=== PATIENT | female | born 1935 | race African-American/Black ===

== ENCOUNTER 2024-10-18 15:21 | Inpatient (IN) | payer OTHER ==
[2024-10-18 16:33] LABS: Absolute Basophils 0.1 K/uL (0-0.5); Absolute Lymphocytes (CBC) 2.3 K/uL (0.7-4.9); Absolute Monocytes 0.4 K/uL (0.1-1.3); Absolute Neutrophil 6.1 K/uL (1.8-8.0); Basophils % 1.1 % (0-1.3); Eosinophils % 0.1 % (0-4.4); Hematocrit 18.2 % (36.0-45.0); Lymphocytes % 26.2 % (15.3-44.8); MCHC 30.1 g/dL (32.0-36.0); MPV 7.1 fL (7.6-11.3); Neutrophils % 68.6 % (41.7-73.7); Nucleated Red Blood Cells % 0.2 % (0-0); Platelets 709 thou/uL (152-406); RBC Red Blood Cell Count 3.03 M/uL (3.86-4.86); Red Cell Distribution Width 20.3 % (12.1-15.2)
[2024-10-18 16:38] LABS: Hemoglobin 5.5 g/dL (12.0-15.0)
[2024-10-18 16:51] LABS: AST/SGOT 16 U/L (15-37); Albumin 3.2 g/dL (3.4-5.0); Albumin/Globulin Ratio 0.7 (1.1-1.8); Alkaline Phosphatase 93 U/L (45-117); Anion Gap 11.5 mEq/L (5.0-15.0); BUN Blood Urea Nitrogen 15 mg/dL (7-18); Bicarbonate 22 mEq/L (21-32); Bilirubin Total 0.4 mg/dL (0.2-1.0); Globulin 4.8 g/dL (2.3-3.5); Glomerular Filtration Rate 54 ml/min (=/>90); Glucose Level 200 mg/dL (74-106); Lipase 19 U/L (13-75); Potassium 4.5 mEq/L (3.5-5.1); Sodium Level 137 mEq/L (136-145)
[2024-10-18 16:52] LABS: ALT/SGPT < 14 U/L (13-56)
[2024-10-18 16:54] LABS: Troponin High Sensitivity 112.4 pg/mL (<58.9)
[2024-10-18] MEDS ORDERED: PANTOPRAZOLE 40 MG INJ ONE (17:09)
[2024-10-18] MEDS ORDERED: NA CHLORIDE 0.9% 250 ML ONE (17:10)
--- NOTE | 2024-10-18 17:42 | RAD REPORT ---
EXAMINATION: Abdomen Pelvis W Contrast CLINICAL INDICATION: Female, 88 years old.anemia TECHNIQUE: CT abdomen and pelvis was performed, after the administration of IV contrast, as per [facility] protocol. Axial, sagittal and coronal reconstructions were obtained. One or more of the following dose reduction techniques were used: Automated exposure control, adjustment of the mA and/o r kV according to patient size, and/or iterative reconstruction. Unless otherwise specified, incidental findings do not require dedicated imaging follow-up. [id number]. COMPARISON: No prior exam. FINDINGS: LOWER CHEST: No acute process identified.Mild cardiomegaly. Aortic valve calcifications. UPPER GI: No significant abnormality. LIVER: No significant focal abnormality. GALLBLADDER/BILE DUCTS: No biliary ductal dilatation.? PANCREAS: Atrophy but no acute findings. SPLEEN: Unremarkable. ADRENALS: No adrenal masses. KIDNEYS AND URETERS: No hydronephrosis.No suspicious renal mass.No renal calculi. ABDOMINAL AORTA AND OTHER VESSELS: Mild atherosclerotic changes. PERITONEUM: No abnormal free fluid. No free air. LYMPH NODES: No bulky retroperitoneal lymphadenopathy. This includes a left para-aortic lymph node me asuring 2.2 cm. Bilateral pelvic sidewall lymphadenopathy. ABDOMINAL WALL: Body wall edema SMALL BOWEL/COLON: Irregular rectal wall thickening at the lower third of the rectum. Enlarged perire ctal lymph nodes.Normal appendix. Low formed stool burden. URINARY BLADDER: Underdistended but grossly unremarkable. REPRODUCTIVE ORGANS: Uterus surgically absent. No adnexal abnormality. MUSCULOSKELETAL: Multilevel degenerative changes in the spine. No acute fracture. ADDITIONAL FINDINGS: None. 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 The retroperitoneal lymph nodes should be amenable to CT-guided biopsy if clinically indicated. Alternatively, could consider colonos copy for sampling. No bowel obstruction.
[2024-10-18 17:45] LABS: Differential Total Cells Count 100
[2024-10-18 17:46] LABS: Lymphocytes 21 % (15-42); Monocytes 1 % (0-10); Platelet Estimate INCR; Segmented Neutrophils 78 % (40-80)
[2024-10-18 17:48] LABS: Blood Morphology Comment NOT SEEN (NOT SEEN)
--- NOTE | 2024-10-18 18:16 | EDPHYS ---
Physician Documentation [facility] Name: Nisreen Mayer Age: 88 yrs Sex: Female : 1935 Arrival Date: 10/18/2024 Time: 15:21 Bed 17 Private MD: ED Physician Koffi Burkett HPI: 10/18 15:48 This 88 yrs old Black Female presents to ER via Wheelchair with complaints of Abnormal overnight babysitter Results. 15:48 Patient sent in by PCP for anemia. Hemoglobin of 10 6 months ago, most recently down to rn 5. Reports dark stool for unknown period of time. No hematemesis. Does not take blood thinners. No abdominal pain. No syncope or shortness of breath. Patient reports feels fine otherwise. No early satiety or weight loss.. Onset: The symptoms/episode began/occurred 6 month(s) ago. Severity of symptoms: At their worst the symptoms were moderate in the emergency department the symptoms are unchanged. The patient has not experienced similar symptoms in the past. Historical: - Allergies: 15:29 No Known Allergies; ld1 - PMHx: 15:29 Hypertensive disorder; Diabetes mellitus; Hypercholesterolemia; ld1 - PSHx: 15:29 Total abdominal hysterectomy; ld1 - Immunization history:: Adult Immunizations up to date. - Infectious Disease History:: Denies. - Social history:: Smoking status: Patient denies any tobacco usage or history of. - Family history:: not pertinent. - Hospitalizations: : No recent hospitalization is reported. ROS: 15:48 Constitutional: Negative for fever, chills, and weight loss, Cardiovascular: Negative rn for chest pain, palpitations, and edema, Respiratory: Negative for shortness of breath, cough, wheezing, and pleuritic chest pain, Abdomen/GI: Negative for abdominal pain, nausea, vomiting, diarrhea, and constipation, positive for dark stool Back: Negative for injury and pain, MS/Extremity: Negative for injury and deformity, Skin: Negative for injury, rash, and discoloration, Neuro: Negative for headache, weakness, numbness, tingling, and seizure, Exam: 15:48 Constitutional: This is a well developed, well nourished patient who is awake, alert, rn and in no acute distress. Eyes: Pale conjunctiva Cardiovascular: Tachycardic, regular. No pulse deficits. Respiratory: No increased work of breathing, no retractions or nasal flaring. Abdomen/GI: Soft, non-tender MS/ Extremity: Pulses equal, no cyanosis Neuro: Awake and alert, GCS 15 Vital Signs: 15:27 BP 143 / 86; Pulse 113; Resp 18; Temp 97.5(TE); Pulse Ox 98% on R/A; Weight 71.67 kg; ld1 Height 5 ft. 0 in. ; Pain 0/10; 18:51 BP 141 / 79; Pulse 69; Resp 16; Pulse Ox 100% ; bp 19:30 BP 163 / 81; Pulse 99; Resp 18; Pulse Ox 100% ; cp4 20:30 BP 153 / 77; Pulse 97; Resp 18; Pulse Ox 100% ; cp4 21:30 BP 155 / 78; Pulse 94; Resp 18; Pulse Ox 100% ; cp4 22:30 BP 155 / 78; Pulse 94; Resp 18; Pulse Ox 100% ; cp4 15:27 Body Mass Index 30.86 (71.67 kg, 152.4 cm) ld1 15:27 Pain Scale: Adult ld1 MDM: 15:37 Medical Screening Exam initiated rn 18:12 Differential Diagnosis Colon cancer, GI bleed, gastric ulcers, duodenal ulcer, anemia. rn Data reviewed: vital signs, nurses notes, lab test result(s), radiologic studies, CT scan, and as a result, I will admit patient. Consideration of Admission/Observation Patient was admitted/placed on observation. Escalation of care including admission/observation considered. Counseling: I had a detailed discussion with the patient and/or guardian regarding the historical points, exam findings, and any diagnostic results supporting the discharge/admit diagnosis, lab results, radiology results, the need for further work-up and treatment in the hospital. ED course: Patient with hemoglobin 5.5. CT shows possible rectal/colon cancer with lymphadenopathy. Slow bleed from February to now. Will give transfusion, 2 units of blood and admit to hospitalist service for GI consultation. Clinically patient reports dark stool consistent with upper GI bleed but CT shows possible rectal mass. Patient denies hematochezia.. 10/18 15:43 Order name: CBC with Diff; Complete Time: 18:05 rn 10/18 15:43 Order name: CMP; Complete Time: 17:31 rn 10/18 15:43 Order name: Lipase; Complete Time: 17:31 rn 10/18 15:43 Order name: Type And Screen rn 10/18 15:43 Order name: Troponin High Sensitivity; Complete Time: 17:31 rn 10/18 16:41 Order name: Manual Differential; Complete Time: 18:05 EDMS 10/18 17:37 Order name: Bb Add On bd 10/18 19:23 Order name: Packed RBCs (Additional Unit) EDMS 10/18 19:30 Order name: ABO/RH no charge; Complete Time: 16:53 EDMS 10/18 20:34 Order name: CBC with Automated Diff EDMS 10/18 20:34 Order name: Troponin High Sensitivity EDMS 10/18 20:34 Order name: Comprehensive Metabolic Panel EDMS 10/18 20:34 Order name: Comprehensive Metabolic Panel; Complete Time: 16:53 EDMS 10/18 20:34 Order name: Protime (+INR) EDMS 10/18 20:34 Order name: Protime (+INR); Complete Time: 16:53 EDMS 10/18 20:34 Order name: PTT, Activated Partial Thromb EDMS 10/18 20:34 Order name: PTT, Activated Partial Thromb; Complete Time: 16:53 EDMS 10/19 05:56 Order name: Troponin High Sensitivity; Complete Time: 16:53 EDMS 10/19 06:02 Order name: CBC with Automated Diff; Complete Time: 16:53 EDMS 10/19 08:25 Order name: Manual Differential; Complete Time: 16:53 EDMS 10/19 09:40 Order name: Glucose, Ancillary Testing; Complete Time: 16:53 EDMS 10/19 12:37 Order name: Glucose, Ancillary Testing; Complete Time: 16:53 EDMS 10/18 15:43 Order name: CT Abd/Pelvis - IV Contrast Only; Complete Time: 18:05 rn 10/18 20:34 Order name: Echo with Doppler EDWA 10/18 20:33 Order name: CONS Physician Consult EDWA 10/18 20:34 Order name: CONS Physician Consult EDWA 10/18 15:43 Order name: IV Saline Lock; Complete Time: 16:32 rn 10/18 15:43 Order name: Labs collected and sent; Complete Time: 16:32 rn 10/18 15:43 Order name: EKG - Nurse/Tech; Complete Time: 17:50 rn 10/18 16:38 Order name: Labs - recollect needed: recollect type and screen, re band pt; Complete bd Time: 17:06 10/18 17:20 Order name: Labs - recollect needed: re collect type and screen reband pt again; bd Complete Time: 17:49 Administered Medications: 17:50 Drug: Pantoprazole IVP 40 mg IVP once Route: IVP; Site: right antecubital; bp 17:50 Drug: Pantoprazole IV 8 mg/hr IV at 25 ml/hr continuous; (Standard dilution is 80 mg in bp 250 mL NS) Route: IV; Rate: 25 ml/hr; Site: right antecubital; 10/19 07:00 Follow up: Response: No adverse reaction; IV Status: Infusion continued upon admission jl7 Disposition Summary: 10/18/24 18:16 Hospitalization Ordered Notes: Hospitalization Status: Inpatient Admission rn Provider: Luis Meza rn Condition: Stable rn Problem: an ongoing problem rn Symptoms: are unchanged rn Bed/Room Type: Standard rn Location: Telemetry/MedSurg (Inpatient)(10/19/24 13:51) bd Room Assignment: 218(10/19/24 14:43) bd Diagnosis - Anemia, unspecified rn - GI Bleed/ Gastrointestinal hemorrhage, unspecified rn Forms: - Medication Reconciliation Form rn - SBAR form rn - Leadership Thank You Letter engraver ornamental design time excluding procedures: 10/18 18:12 Critical care time: Bedside Care: 30 minutes, Consultation: 5 minutes, Family rn Intervention: 5 minutes. Total time: 40 minutes Signatures: Dispatcher [employer] EDWA Tereza Brice Koffi Burkett MD MD rn Attema, Lee, MID LEVEL PROJECT MANAGER-C MID LEVEL PROJECT MANAGER-Cla1 Alfonso Logan, RN RN bp Brandy Penny RN RN ld1 Ashley Law RN RN vc1 Terry Terrell RN jl7 Corrections: (The following items were deleted from the chart) 15:44 15:44 Troponin High Sensitivity+C.LAB.BRZ ordered. EDWA EDMS 21:01 18:16 Telemetry/MedSurg (Inpatient) rn vc1 21: 18:16 rn vc1 10/19 13:51 10/18 21:01 [facility] ER HOLD vc1 bd 10/19 13:51 10/18 21:01 ERHOLD- vc1 bd 30 14:43 13:51 430 bd bd
--- NOTE | 2024-10-18 18:16 | ER ---
Nurse's Notes [facility] Name: Nisreen Mayer Age: 88 yrs Sex: Female : 1935 Arrival Date: 10/18/2024 Time: 15:21 Bed 17 Private MD: Diagnosis: Anemia, unspecified;GI Bleed/ Gastrointestinal hemorrhage, unspecified Presentation: 10/18 15:27 Chief complaint: Patient states: Sent by Dr. Singh for abnormal lab results - Low HGB. ld1 From February to August pt dropped from 10 to a 5. Coronavirus screen: At this time, the client does not indicate any symptoms associated with coronavirus-19. Ebola Screen: No symptoms or risks identified at this time. Initial Sepsis Screen: Does the patient meet any 2 criteria? No. Patient's initial sepsis screen is negative. Does the patient have a suspected source of infection? No. Patient's initial sepsis screen is negative. Risk Assessment: Do you want to hurt yourself or someone else? Patient reports no desire to harm self or others. Onset of symptoms was October 18, 2024. 15:27 Method Of Arrival: Wheelchair ld1 15:27 Acuity: QUINN 2 ld1 Triage Assessment: 15:29 General: Appears in no apparent distress. comfortable, Behavior is calm, cooperative, ld1 appropriate for age. Pain: Denies pain. EENT: No signs and/or symptoms were reported regarding the EENT system. Neuro: Level of Consciousness is awake, alert, obeys commands, Oriented to person, place, time, situation. Cardiovascular: Capillary refill < 3 seconds Patient's skin is warm and dry. Cardiovascular: Rhythm is sinus tachycardia. Respiratory: Airway is patent Respiratory effort is even, unlabored. GI: Abdomen is flat, non-distended. : No signs and/or symptoms were reported regarding the genitourinary system. Derm: No signs and/or symptoms reported regarding the dermatologic system. Musculoskeletal: No signs and/or symptoms reported regarding the musculoskeletal system. Historical: - Allergies: 15: No Known Allergies; ld1 - PMHx: 15: Hypertensive disorder; Diabetes mellitus; Hypercholesterolemia; ld1 - PSHx: 15: Total abdominal hysterectomy; ld1 - Immunization history:: Adult Immunizations up to date. - Infectious Disease History:: Denies. - Social history:: Smoking status: Patient denies any tobacco usage or history of. - Family history:: not pertinent. - Hospitalizations: : No recent hospitalization is reported. Screenin:30 [facility] ED Fall Risk Assessment (Adult) History of falling in the last 3 months, bp including since admission No falls in past 3 months (0 pts) Confusion or Disorientation No (0 pts) Intoxicated or Sedated No (0 pts) Impaired Gait No (0 pts) Mobility Assist Device Used No (0 pt) Altered Elimination No (0 pt) Score/Fall Risk Level 0 - 2 = Low Risk Oriented to surroundings. Abuse screen: Denies threats or abuse. Denies injuries from another. Nutritional screening: No deficits noted. Tuberculosis screening: No symptoms or risk factors identified. Assessment: 15:30 General: Appears in no apparent distress. comfortable, Behavior is calm, cooperative, bp appropriate for age. 17:30 Reassessment: Patient appears in no apparent distress at this time. Patient is alert, bp oriented x 3, equal unlabored respirations, skin warm/dry/pink. Vital Signs: 15:27 BP 143 / 86; Pulse 113; Resp 18; Temp 97.5(TE); Pulse Ox 98% on R/A; Weight 71.67 kg; ld1 Height 5 ft. 0 in. ; Pain 0/10; 18:51 BP 141 / 79; Pulse 69; Resp 16; Pulse Ox 100% ; bp 19:30 BP 163 / 81; Pulse 99; Resp 18; Pulse Ox 100% ; cp4 20:30 BP 153 / 77; Pulse 97; Resp 18; Pulse Ox 100% ; cp4 21:30 BP 155 / 78; Pulse 94; Resp 18; Pulse Ox 100% ; cp4 22:30 BP 155 / 78; Pulse 94; Resp 18; Pulse Ox 100% ; cp4 15:27 Body Mass Index 30.86 (71.67 kg, 152.4 cm) ld1 15:27 Pain Scale: Adult ld1 ED Course: 15:22 Patient arrived in ED. im 15:29 Triage completed. ld1 15:29 Arm band placed on right wrist. ld1 15:30 Patient has correct armband on for positive identification. bp 15:30 No provider procedures requiring assistance completed. Patient admitted, IV remains in bp place. 15:37 Koffi Burkett MD is Attending Physician. rn 16:32 Troponin High Sensitivity Sent. bc6 16:32 Type And Screen Sent. bc6 16:32 CBC with Diff Sent. bc6 16:32 CMP Sent. bc6 16:32 Lipase Sent. bc6 16:32 Initial lab(s) drawn, by me, sent to lab. Inserted saline lock: 22 gauge in left bc6 antecubital area, using aseptic technique. Blood collected. Flushed with 10 mL NS. 17:01 Alfonso Logan, RN is Primary Nurse. bp 17:21 CT Abd/Pelvis - IV Contrast Only In Process Unspecified. EDMS 18:15 Luis Meza MD is Hospitalizing Provider. rn 23:12 Provided Education on: Blood Transfusion, admission. cp4 10/19 07:13 Primary Nurse role handed off by Alfonso Logan, OPAL guan Administered Medications: 10/18 17:50 Drug: Pantoprazole IVP 40 mg IVP once Route: IVP; Site: right antecubital; bp 17:50 Drug: Pantoprazole IV 8 mg/hr IV at 25 ml/hr continuous; (Standard dilution is 80 mg in bp 250 mL NS) Route: IV; Rate: 25 ml/hr; Site: right antecubital; 10/19 07:00 Follow up: Response: No adverse reaction; IV Status: Infusion continued upon admission jl7 Medication: 10/18 23:13 VIS not applicable for this client. cp4 Outcome: 18:16 Decision to Hospitalize by Provider. rn 23:12 Admitted to ER Hold. Please see [facility] for further documentation. cp4 23:12 Condition: stable 23:12 Instructed on the need for admit, 10/19 15:47 Patient left the ED. jl7 Signatures: Dispatcher [employer] EDMS Tereza Brice Roman, MD MD rn Leal, Jahala, RN RN jl7 Alfonso Logan, RN Brandy Rodas RN RN nan1 Bella Ng [facility] Christina Morley Christina cp4
[2024-10-18] MEDS ORDERED: ACETAMINOPHEN 500 MG TAB PO PRN (20:20)
--- NOTE | 2024-10-18 20:34 | P.HP ---
Certification for Inpatient Patient admitted to: Inpatient With expected LOS: >2 Midnights Patient will require the following post-hospital care: None Practitioner: I am a practitioner with admitting privileges, knowledge of patient current condition, hospital course, and medical plan of care. Services: Services provided to patient in accordance with Admission requirements found in Title 42 Section 412.3 of the Code of Federal Regulations Patient History Date of Service: 10/18/24 Reason for admission: Lower GI bleeding; melanotic stool History of Present Illness: Patient is an 88-year-old female who comes into the hospital with severe anemia. She was told by her PCP her hemoglobin has been running low since August. Her current hemoglobin is 5.5. Patient states she has been having melanotic stools for the last month and a half. She denies any weight loss. In the ER she had imaging studies which revealed her rectal mass as well as lymphadenopathy. Will consult GI for endoscopy for further evaluation and biopsy of the rectal lesion. Patient states she has never had a colonoscopy or an EGD. Patient denies any family history of colorectal cancer. Patient will be admitted for inpatient hospitalization. Patient also has an elevated troponin. She is also followed up with her staffing associate and has had a stress test in the last year which did not reveal any significant abnormality. Patient possibly with a type II myocardial infarction because of the degree of anemia. Will consult cardiology for further evaluation. Patient will be admitted for inpatient hospitalization. Will continue with the PPI and IV antibiotics and will await further recommendations per GI and cardiology. Allergies No Known Allergies Allergy (Verified 12/31/15 10:17) Home Medications: Amlodipine Besylate [Norvasc] 10 mg PO DAILY 04/18/15 Aspirin [Aspirin EC 81 MG] 81 mg PO DAILY 04/18/15 Pioglitazone HCl/Metformin HCl [Actoplus Met 15 mg-500 mg Tab] 1 each PO BID 04/18/15 Simvastatin [Zocor*] 10 mg PO BEDTIME 04/18/15 cloNIDine HCL [Catapres*] 0.1 mg PO BID 04/18/15 Cyclosporine [Restasis] 1 each EACH EYE BID 09/18/15 Metoprolol Tartrate [Lopressor] 100 mg PO DAILY 09/18/15 Valsartan/Hydrochlorothiazide [Valsartan-Hctz 320-25 mg Tab] 1 each PO DAILY 12/26/15 Vit C/E/Zn/Coppr/Lutein/Zeaxan [Preservision Areds 2 Softgel] 1 each PO DAILY 12/26/15 - Past Medical/Surgical History -: Hypertension -: Type 2 diabetes -: Hyperlipidemia Past Surgical History: Patient denies surgical history - Family History Father Family History: Reviewed- Non-Contributory - Social History Smoking Status: Never smoker Alcohol use: No CD- Drugs: No Review of Systems 10-point ROS is otherwise unremarkable Physical Examination - Vital Signs Temperature: 98 F Blood Pressure: 150/80 Pulse: 92 Respirations: 18 Pulse Ox (%): 95 - Physical Exam General: Alert, In no apparent distress, Oriented x3 HEENT: Atraumatic, PERRLA, Mucous membr. moist/pink, EOMI, Sclerae nonicteric Neck: Supple, 2+ carotid pulse no bruit, No LAD, Without JVD or thyroid abnormality Respiratory: Clear to auscultation bilaterally, Normal air movement Cardiovascular: Regular rate/rhythm, Normal S1 S2, No murmurs Gastrointestinal: Normal bowel sounds, Soft and benign, Non-distended, No tenderness, No rebound, No guarding Musculoskeletal: No clubbing, No swelling, No tenderness Integumentary: No rashes Neurological: Normal gait, Normal speech, Normal strength at 5/5 x4 extr, Normal tone, Sensation intact, Cranial nerves 3-12 intact, Normal affect Lymphatics: No axilla or inguinal lymphadenopathy - Studies Laboratory Data (last 24 hrs) 10/18/24 10/18/24 16:20 16:20 WBC 8.90 Hgb 5.5 L* Hct 18.2 L Plt Count 709 H Sodium 137 Potassium 4.5 BUN 15 Creatinine 1.02 Glucose 200 H Total Bilirubin 0.4 AST 16 ALT < 14 Alkaline Phosphatase 93 Lipase 19 Assessment & Plan - Problems (Diagnosis) (1) Lower GI bleed Current Visit: Yes Status: Acute (2) Hypertension Current Visit: Yes Status: Acute (3) Type 2 diabetes mellitus Current Visit: Yes Status: Acute (4) Reactive thrombocytosis Current Visit: Yes Status: Acute - Plan Plan: 1. Patient with GI bleed; patient states she has had melanotic stools as well as a hemoglobin of 5.5. Patient CT imaging shows a rectal mass. 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 Patient has not had a colonoscopy. Will continue with PPI and antibiotics and await for GI consultation. Appreciate their assistance in patient's care. 2. Type II myocardial infarction secondary to anemia; continue monitoring H&H. Hold antiplatelet therapy because of the GI bleed but continue with statin therapy at this time. Will get cardiology consultation as patient states she has had a stress test in the last year which was unremarkable 3. Metabolic syndrome; strict blood pressure and blood sugar control and resume antihypertensives and oral hypoglycemic agents as tolerated 4. Acute blood loss anemia with reactive thrombocytosis; 2 units of packed red blood cells ordered and will monitor hemoglobin closely. Anemia workup with iron studies and B12 level as well as reticulocyte count pending 5. GI DVT prophylaxis Discharge Plan: Home Plan to discharge in: Greater than 2 days - Advance Directives Does patient have a Living Will: No Does patient have a Durable POA for Healthcare: No - Code Status/Comfort Care Code Status Assessed: Yes Code Status: Full Code Critical Care: No Time Spent Managing PTS Care (In Minutes): 45
[2024-10-18] MEDS: NA CHLORIDE 0.9% 1,000 ML IV SCH (21:00)
[2024-10-18] MEDS ORDERED: NA CHLORIDE 0.9% 200 ML ONE (21:10)
[2024-10-18 23:24] VITALS: BMI 30.8
[2024-10-19] MEDS ORDERED: ONDANSETRON 4 MG/2 ML VIAL ONE (01:38)
[2024-10-19] MEDS: ONDANSETRON 4 MG/2 ML VIAL IV PRN (01:41)
[2024-10-19 05:50] LABS: AST/SGOT 13 U/L (15-37); Albumin 3.4 g/dL (3.4-5.0); Albumin/Globulin Ratio 0.7 (1.1-1.8); Alkaline Phosphatase 102 U/L (45-117); BUN Blood Urea Nitrogen 11 mg/dL (7-18); Bicarbonate 20 mEq/L (21-32); Bilirubin Total 0.8 mg/dL (0.2-1.0); Globulin 5.2 g/dL (2.3-3.5); Glomerular Filtration Rate 84 ml/min (=/>90); Glucose Level 209 mg/dL (74-106); Protein, Total 8.6 g/dL (6.4-8.2); Sodium Level 135 mEq/L (136-145)
[2024-10-19 05:52] LABS: Hematocrit 27.6 % (36.0-45.0); Hemoglobin 8.6 g/dL (12.0-15.0); MCH 21.3 pg (27.0-35.0); MCHC 31.2 g/dL (32.0-36.0); MCV 68.3 fL (80-100); MPV 7.1 fL (7.6-11.3); Platelets 678 thou/uL (152-406); RBC Red Blood Cell Count 4.05 M/uL (3.86-4.86); Red Cell Distribution Width 27.6 % (12.1-15.2)
[2024-10-19 05:52] LABS: ALT/SGPT < 14 U/L (13-56)
[2024-10-19 05:56] LABS: PT Prothrombin Time 11.9 SECONDS (10-13.0); PTT, Activated Partial Thromb 31.4 SECONDS (27.2-37.4); Protime INR 1.05
[2024-10-19 05:56] LABS: Troponin High Sensitivity 136.3 pg/mL (<58.9)
[2024-10-19] MEDS ORDERED: PANTOPRAZOLE INJ 80 MG in NA CHLORIDE 0.9% 250 ML IV SCH (07:00)
[2024-10-19 08:24] LABS: Anisocytosis 3+; Blood Morphology Comment NOTED (NOT SEEN); Differential Total Cells Count 100; Hypochromasia 1+; Lymphocytes 6 % (15-42); Microcytosis 1+; Monocytes 1 % (0-10); Platelet Estimate INCR; Segmented Neutrophils 93 % (40-80); Target Cells FEW
[2024-10-19 08:25] LABS: Teardrop Cell 1+
[2024-10-19] MEDS: PANTOPRAZOLE INJ 80 MG in NA CHLORIDE 0.9% 250 ML IV SCH (09:00)
[2024-10-19] MEDS: METOPROLOL TARTRATE 5 MG/5 ML INJ IV SCH (09:00)
[2024-10-19] MEDS: CEFTRIAXONE 1,000 MG in NA CHLORIDE 0.9% 50 ML IVPB SCH (09:00)
[2024-10-19] MEDS ORDERED: CEFTRIAXONE 1000 MG/VIAL ONE (09:11)
[2024-10-19] MEDS ORDERED: METRONIDAZOLE 500mg IVPB 500 MG/100 ML BAG IV ONE (09:12)
[2024-10-19] MEDS ORDERED: cloNIDine HCL 0.1 MG TAB ONE (09:12)
[2024-10-19] MEDS ORDERED: METOPROLOL TARTRATE 5 MG/5 ML INJ IV ONE ×2 (09:12→14:46)
[2024-10-19] MEDS ORDERED: NA CHLORIDE 0.9% 50 ML ONE (09:12)
[2024-10-19] MEDS ORDERED: GLUCAGON 1 MG/VIAL IM PRN (09:19)
[2024-10-19] MEDS ORDERED: D10W 125 ML IV PRN (09:19)
[2024-10-19] MEDS: METRONIDAZOLE 500mg IVPB 500 MG/100 ML BAG IV SCH (09:30)
[2024-10-19] MEDS: cloNIDine HCL 0.1 MG TAB PO SCH (09:50)
[2024-10-19] MEDS: INSULIN REGULAR (HUMAN) 100 UNIT/ML SQ SCH (11:30)
--- NOTE | 2024-10-19 12:16 | P.CNS ---
Date of Consult: 10/19/24 Chief Complaint: Lower GI bleeding; melanotic stool History of Present Illness: Patient with PMH of HTN, presented with weakness, she was told that her HgB is dropping, she report bleeding per rectum, denies having any cardiac symptoms, no chest pain, no palpitations, no SOB, no GRACE, no syncope. Allergies No Known Allergies Allergy (Verified 12/31/15 10:17) Home medications list reviewed: Yes Home Medications: Amlodipine Besylate [Norvasc] 10 mg PO DAILY 04/18/15 cloNIDine HCL [Catapres*] 0.2 mg PO DAILY 04/18/15 Valsartan/Hydrochlorothiazide [Valsartan-Hctz 320-25 mg Tab] 80 mg PO DAILY 12/26/15 Metformin HCl 850 mg PO DAILY 10/19/24 Metoprolol Succinate 25 mg PO DAILY 10/19/24 - Past Medical/Surgical History -: Hypertension -: Type 2 diabetes -: Hyperlipidemia - Family History Father Family History: Reviewed- Non-Contributory - Social History Alcohol use: No CD- Drugs: No Place of Residence: Home Review of Systems 10-point ROS is otherwise unremarkable Physical Examination Temp Pulse Resp BP Pulse Ox 98 F 97 H 18 168/90 H 95 10/19/24 06:18 10/19/24 09:50 10/19/24 06:18 10/19/24 09:50 10/19/24 06:18 General: Alert, In no apparent distress HEENT: Atraumatic, PERRLA, Mucous membr. moist/pink, EOMI, Sclerae nonicteric Neck: Supple, 2+ carotid pulse no bruit, No LAD, Without JVD or thyroid abnormality Respiratory: Clear to auscultation bilaterally, Normal air movement Cardiovascular: Regular rate/rhythm, Normal S1 S2 Gastrointestinal: Normal bowel sounds, No tenderness Musculoskeletal: No tenderness Integumentary: No rashes Neurological: Normal gait, Normal speech, Normal tone, Normal affect Lymphatics: No axilla or inguinal lymphadenopathy Laboratory Data (last 24 hrs) 10/18/24 10/18/24 16:20 16:20 WBC 8.90 Hgb 5.5 L* Hct 18.2 L Plt Count 709 H Sodium 137 Potassium 4.5 BUN 15 Creatinine 1.02 Glucose 200 H Total Bilirubin 0.4 AST 16 ALT < 14 Alkaline Phosphatase 93 Lipase 19 - Problems (1) Type 2 NC (myocardial infarction) Current Visit: Yes Status: Acute Plan: Patient had mild troponin leak, no significant EKG changes, no chest pain, patient had a stress test done with cardiology last year that was negative. it is type 2 NC from severe anemia Echo shows normal EF Continue to trend troponin until peak and down trending. No further cardiac work up needed. (2) Preoperative clearance Current Visit: Yes Status: Acute Plan: Patient is cleared as low cardiac risk for procedure. (3) Hypertension Current Visit: Yes Status: Acute Plan: re start patient on lopressor 100 mg po BID continue Clonidine 0.1 mg po BID
--- NOTE | 2024-10-19 12:18 | ECHO ---
HEIGHT: 5 ft 0 in WEIGHT: 158 lb 0 oz DATE OF STUDY: 10/19/[address]: Luis Meza MD 2-DIMENSIONAL: YES M.MODE: YES DOPPLER: YES COLOR FLOW: YES TDS: PORTABLE: YES DEFINITY: BUBBLE STUDY: DIAGNOSIS: TYPE TWO MITRAL INSUFFICIENCY CARDIAC HISTORY: CATHERIZATION: NO SURGERY: NO PROSTHETIC VALVE: NO PACEMAKER: NO MEASUREMENTS (cm) DIASTOLIC (NORMALS) SYSTOLIC (NORMALS) IVSd 1.3 (0.6-1.2) LA Diam 3.8 (1.9-4.0) LVEF 60-65% LVIDd 4.7 (3.5-5.7) LVIDs 3.0 (2.0-3.5) %FS 35% LVPWd 1.4 (0.6-1.2) Ao Diam 2.8 (2.0-3.7) 2 DIMENSIONAL ASSESSMENT: RIGHT ATRIUM: NORMAL LEFT ATRIUM: NORMAL RIGHT VENTRICLE: NORMAL LEFT VENTRICLE: NORMAL TRICUSPID VALVE: MODERATE TRICUSPID REGURGITATION MITRAL VALVE: MILD MITRAL REGURGITATION PULMONIC VALVE: NORMAL AORTIC VALVE: CALCIFIED, NO STENOSIS PERICARDIAL EFFUSION: SMALL CIRCUMFRENTIAL AORTIC ROOT: NORMAL LEFT VENTRICULAR WALL MOTION: NORMAL DOPPLER/COLOR FLOW: GRADE I DIASTOLIC DYSFUNCTION COMMENTS: 1. NORMAL LEFT VENTRICULAR SYSTOLIC FUNCTION, EJECTION FRACTION 60-65%, NORMAL WALL MOTION 2. GRADE I DIASTOLIC DYFUNCTION 3. SEVERE PULMONARY HYPERTENSION (RIGHT VENTRICULAR SYSTOLIC PRESSURE GREATER THAN 60 mmHg) 4. NORMAL FILLING PRESSURE (RIGHT ATRIAL PRESSURE 0-5 mmHg) 5. SMALL CIRCUMFRENTIAL PERICARDIAL EFFUSION TECHNOLOGIST: JEROD STONER
--- NOTE | 2024-10-19 13:18 | P.PN ---
Subjective Date of Service: 10/19/24 Chief Complaint: Lower GI bleeding; melanotic stool Hemoglobin improved with 2 units of packed red blood cells, n.p.o. overnight for colonoscopy with surgery tomorrow plan to start colon prep tonight, no reported abdominal pain, no rectal bleeding today Review of Systems 10-point ROS is otherwise unremarkable Physical Examination - Vital Signs Temperature: 98 F Blood Pressure: 168/90 Pulse: 97 Respirations: 18 Pulse Ox (%): 95 - Physical Exam General: Alert, In no apparent distress, Oriented x3 HEENT: Atraumatic, Normocephalic, PERRLA Neck: Supple Respiratory: Clear to auscultation bilaterally, Normal air movement Cardiovascular: No edema, Normal pulses, Regular rate/rhythm Capillary refill: <2 Seconds Gastrointestinal: Normal bowel sounds, Soft and benign, Non-distended Musculoskeletal: No clubbing, No swelling Integumentary: No rashes, No breakdown Neurological: Normal speech, Normal strength at 5/5 x4 extr - Studies Laboratory Data (last 24 hrs) 10/18/24 10/18/24 16:20 16:20 WBC 8.90 Hgb 5.5 L* Hct 18.2 L Plt Count 709 H Sodium 137 Potassium 4.5 BUN 15 Creatinine 1.02 Glucose 200 H Total Bilirubin 0.4 AST 16 ALT < 14 Alkaline Phosphatase 93 Lipase 19 Assessment And Plan - Plan Assessment & Plan - Problems (Diagnosis) (1) Lower GI bleed severe anemia Current Visit: Yes Status: Acute (3 )severe anemia Current Visit: Yes Status: Acute (4) NSTEMI Current Visit: Yes Status: Acute (5) Reactive thrombocytosis Current Visit: Yes Status: Acute (6) Hypertension Current Visit: Yes Status: Acute (7) Type 2 diabetes mellitus Current Visit: Yes Status: Acute (8) rectal mass Current Visit: Yes Status: Acute - Plan Plan: 1. Patient with GI bleed; patient states she has had melanotic stools as well as a hemoglobin of 5.5. Patient CT imaging shows a rectal mass. 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 Patient has not had a colonoscopy. Will continue with PPI and antibiotics and await for GI consultation. Appreciate their assistance in patient's care. 2. Type II myocardial infarction secondary to anemia; continue monitoring H&H. Hold antiplatelet therapy because of the GI bleed but continue with statin therapy at this time. Will get cardiology consultation as patient states she has had a stress test in the last year which was unremarkable 3. Metabolic syndrome; strict blood pressure and blood sugar control and resume antihypertensives and oral hypoglycemic agents as tolerated 4. Acute blood loss anemia with reactive thrombocytosis; 2 units of packed red blood cells ordered and will monitor hemoglobin closely. Anemia workup with iron studies and B12 level as well as reticulocyte count pending 5. GI DVT prophylaxis 6. Received 2 units of packed red blood cells overnight 7. 10/19 Surgery consult for rectal mass plan to start bowel prep keep n.p.o. after midnight Discharge Plan: Home Plan to discharge in: Greater than 2 days - Advance Directives Does patient have a Living Will: No Does patient have a Durable POA for Healthcare: No - Code Status/Comfort Care Code Status Assessed: Yes Code Status: Full Code Critical Care: No Time Spent Managing PTS Care (In Minutes): 35 Discharge Plan: Home - Code Status/Comfort Care Code Status: Full Code Critical Care: No Time Spent Managing PTS Care (In Minutes): 35
--- NOTE | 2024-10-19 16:24 | P.PN ---
Subjective: No chest pain or shortness of breath. No nausea or vomiting. No abdominal pain. Complaining of rectal bleeding. Looks comfortable in the bed. Objective: General appearance: Alert and comfortable CVS: Normal S1 and S2 Lungs: Clear to auscultation bilaterally Abdomen: Soft, bowel sounds present, no tenderness Extremities: No lower extremity edema 88-year-old patient with anemia, hemoglobin better after transfusion, CT abdomen showed possible rectal cancer with lymphadenopathy, GI consult pending. Elevated troponin, probably from anemia, cardiology is following, echo showed moderate TR, 60 to 65% EF, severe pulmonary hypertension, small pericardial effusion, no further workup per cardiology. Hypertension, continue current medications and monitor closely. Plan discussed with the patient, family and nursing staff at bedside
[2024-10-19] MEDS: MAGNESIUM CITRATE 300 ML BOT PO ONE (17:49)
[2024-10-19] MEDS: GOLYTELY 4000 ML PO ONE (17:49)
[2024-10-19] MEDS: METOCLOPRAMIDE 10 MG/2mL INJ IV SCH (17:49)
[2024-10-20 08:35] LABS: Absolute Basophils 0.1 K/uL (0-0.5); Absolute Monocytes 0.7 K/uL (0.1-1.3); Basophils % 0.5 % (0-1.3); Eosinophils % 0.1 % (0-4.4); Hematocrit 26.8 % (36.0-45.0); Hemoglobin 8.6 g/dL (12.0-15.0); Lymphocytes % 15.3 % (15.3-44.8); MCH 21.5 pg (27.0-35.0); MCV 67.2 fL (80-100); MPV 7.4 fL (7.6-11.3); Monocytes % 5.6 % (3.3-12.3); Neutrophils % 78.5 % (41.7-73.7); Nucleated Red Blood Cells % 0.1 % (0-0); Percent Reticulocyte Count 1.59 % (0.4-2.05); Platelets 643 thou/uL (152-406); RBC Red Blood Cell Count 3.99 M/uL (3.86-4.86); Red Cell Distribution Width 28.8 % (12.1-15.2)
[2024-10-20 08:39] LABS: PT Prothrombin Time 12.2 SECONDS (10-13.0); PTT, Activated Partial Thromb 31.3 SECONDS (27.2-37.4); Protime INR 1.07
[2024-10-20] MEDS: VALSARTAN 80 MG TAB PO SCH (10:39)
[2024-10-20] MEDS: AMLODIPINE 10 MG TAB PO SCH (10:39)
[2024-10-20 15:04] LABS: AST/SGOT 15 U/L (15-37); Albumin 2.8 g/dL (3.4-5.0); Albumin/Globulin Ratio 0.6 (1.1-1.8); Alkaline Phosphatase 87 U/L (45-117); Anion Gap 7.7 mEq/L (5.0-15.0); BUN Blood Urea Nitrogen 9 mg/dL (7-18); Bicarbonate 26 mEq/L (21-32); Bilirubin Total 0.6 mg/dL (0.2-1.0); Globulin 4.7 g/dL (2.3-3.5); Glomerular Filtration Rate 86 ml/min (=/>90); Glucose Level 174 mg/dL (74-106); HDL Cholesterol 73 mg/dL (40-60); LDL Cholesterol, Calculated 73 mg/dL (<130); LDL Cholesterol,Calc NonReport 73; Magnesium 1.9 mg/dL (1.6-2.4); Potassium 3.7 mEq/L (3.5-5.1); Protein, Total 7.5 g/dL (6.4-8.2); Sodium Level 136 mEq/L (136-145)
[2024-10-20 15:05] LABS: ALT/SGPT < 14 U/L (13-56); Troponin High Sensitivity 133.8 pg/mL (<58.9)
--- NOTE | 2024-10-20 15:19 | P.PN ---
Subjective Date of Service: 10/20/24 Chief Complaint: Lower GI bleeding; melanotic stool Subjective: No chest pain or shortness of breath. No nausea or vomiting. No abdominal pain. rectal bleeding improving. Looks comfortable in the bed. Objective: General appearance: Alert and comfortable CVS: Normal S1 and S2 Lungs: Clear to auscultation bilaterally Abdomen: Soft, bowel sounds present, no tenderness Extremities: No lower extremity edema Physical Examination - Vital Signs Temperature: 98.2 F Blood Pressure: 178/84 Pulse: 90 Respirations: 20 Pulse Ox (%): 97 Assessment And Plan - Plan Assessment & Plan - Problems (Diagnosis) (1) Lower GI bleed severe anemia Current Visit: Yes Status: Acute (3 )severe anemia Current Visit: Yes Status: Acute (4) NSTEMI Current Visit: Yes Status: Acute (5) Reactive thrombocytosis Current Visit: Yes Status: Acute (6) Hypertension Current Visit: Yes Status: Acute (7) Type 2 diabetes mellitus Current Visit: Yes Status: Acute (8) rectal mass Current Visit: Yes Status: Acute Plan: 1. GI bleed; patient states she has had melanotic stools as well as a hemoglobin of 5.5. Patient CT imaging shows a rectal mass. 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 Patient has not had a colonoscopy. W -ill continue with PPI and antibiotics - GI consultati did not see as dr. moraes was off call, dr. graves consulted, colon prep started, plan for c-scoep tomorrow 2. Type II myocardial infarction secondary to anemia, cardiology consultation signed off 3. HTN: resume meds 4. Acute blood loss anemia with reactive thrombocytosis; 2 units of packed red blood cells ordered and will monitor hemoglobin closely. Hgb better post transfusion 88-year-old patient with anemia, hemoglobin better after transfusion, CT abdomen showed possible rectal cancer with lymphadenopathy, plan for c-sope tomorrow. Elevated troponin, probably from anemia, cardiology rec no further w/u, echo showed moderate TR, 60 to 65% EF, severe pulmonary hypertension, small heaven cardial effusion, no further workup per cardiology. Hypertension, meds adjsuted and monitor closely. Plan discussed with the patient, family and nursing staff at bedside. d/w CM team
[2024-10-20] MEDS: PANTOPRAZOLE INJ 80 MG in NA CHLORIDE 0.9% 250 ML IV SCH (16:48)
[2024-10-21] MEDS: HYDRALAZINE HCL 20 MG/ML VIAL IV PRN ×2 (03:57→16:55)
[2024-10-21 07:30] LABS: Absolute Basophils 0.1 K/uL (0-0.5); Absolute Lymphocytes (CBC) 1.9 K/uL (0.7-4.9); Absolute Monocytes 0.8 K/uL (0.1-1.3); Absolute Neutrophil 16.4 K/uL (1.8-8.0); Basophils % 0.3 % (0-1.3); Eosinophils % 0.1 % (0-4.4); Hematocrit 28.6 % (36.0-45.0); Lymphocytes % 9.7 % (15.3-44.8); MCH 21.2 pg (27.0-35.0); MCHC 31.3 g/dL (32.0-36.0); MCV 67.5 fL (80-100); MPV 7.3 fL (7.6-11.3); Monocytes % 4.1 % (3.3-12.3); Neutrophils % 85.8 % (41.7-73.7); Platelets 659 thou/uL (152-406); RBC Red Blood Cell Count 4.24 M/uL (3.86-4.86); Red Cell Distribution Width 28.8 % (12.1-15.2)
[2024-10-21 07:38] LABS: Anion Gap 12.7 mEq/L (5.0-15.0); Potassium 2.7 mEq/L (3.5-5.1)
[2024-10-21 09:27] LABS: Platelet Estimate INCR; White Blood Cell Scan OK (OK)
[2024-10-21 09:30] LABS: Anisocytosis 3+; Blood Morphology Comment NOTED (NOT SEEN); Microcytosis 1+
[2024-10-21 09:31] LABS: Hypochromasia 1+; Target Cells FEW; Teardrop Cell FEW
[2024-10-21] MEDS ORDERED: POTASSIUM CL 40 MEQ in NA CHLORIDE 0.9% 500 ML IV SCH (10:40)
[2024-10-21] MEDS: POTASSIUM CL 40 MEQ in NA CHLORIDE 0.9% 500 ML IV SCH (10:58)
[2024-10-21] MEDS: POTASSIUM 25 MEQ EFFERV TAB PO ONE (11:35)
--- NOTE | 2024-10-21 11:45 | CON ---
Date of Consultation: 10/20/2024 Brief History Of Present Illness: The patient is an 88-year-old female, who presents to hospital wit h severe anemia. She saw her primary care doctor as an outpatient and had been having anemia for mayo e time. She felt progressively worse and started having dark melenic stools for over a month and delfino f. She ultimately came to the emergency room and had a workup, which included a blood test, which di splayed a hemoglobin of 5.5 and concern for rectal mass. She has never had any EGD or colonoscopy be fore in the past. She was noted to have elevated troponins at this time, however, she states she had a stress test with a rib stiffener and heel dipper, which did not show any significant abnormalities in the past. Hamilton maradiaga, Cardiology will evaluate her due to her slight elevation of troponins, but it is likely contri buted to by her significant anemia. Metal Fitter will evaluate the patient. The patient was started with PPIs and IV antibiotics at this time. Past Medical History: Hypertension, diabetes, hyperlipidemia, anemia. Allergies: NO KNOWN DRUG ALLERGIES. Home Medications: Include Norvasc, aspirin, pioglitazone, Zocor, Catapres, Restasis, Lopressor, vals leticia, and multivitamin. Social History: Reviewed and noncontributory. She denies smoking, alcohol, recreational drug use. Review of Systems: Ten-point review of systems other than HPI, denies. Physical Examination: General: At the time of my examination, she is awake, alert, oriented. Psychiatric: She is appropriate, conversive. HEENT: Normocephalic. Sclerae icteric. Nares moist. Oropharynx clear. Neck: Supple without JVD. Chest: Normal to expansion and excursion. Cardiovascular: Regular rhythm. Pulmonary: Clear to auscultation bilaterally. Abdomen: Soft, nontender, nondistended. No rebound. No guarding. No focal peritonitis. Extremities: No clubbing, cyanosis, or edema. Skin: Warm and dry. Laboratory Exam: White blood cell count of 12.8, hemoglobin is 8.6, hematocrit 26.5. However, her h emoglobin on admission was 5.5. She did receive a transfusion. Her platelet count was 643. PT is 1 2.2, INR 1.07. PTT 31.3. Sodium 136, potassium 2.7, chloride 106, carbon dioxide 26, BUN 9, creatin ine 0.6, glucose was 174, magnesium is 1.9, iron was 17, total bilirubin 0.6. Her troponin was 133.8 , down from 136.3 on admission. Her C-reactive protein was 11.8. Her B12 was 291. She had an imagi ng, which included a CT of the abdomen and pelvis, which is officially read as findings suspicious fo r adenocarcinoma of the lower third of the rectum with perirectal and retroperitoneal lymphadenopathy consistent with arabella spread of disease. Retroperitoneal lymph node should be considered, amenable to CT-guided biopsy if clinically indicated. Alternatively, should consider colonoscopy for sampling . No bowel obstruction is noted. The lymph nodes were measuring 2.2 cm. Bilateral pelvic wall side wall lymphadenopathy is appreciated including left periaortic lymph nodes. There is no other bulky r etroperitoneal lymphadenopathy. There is body wall edema. There is irregular rectal wall thickening at the lower third of the rectum, enlarged perirectal lymph nodes, and normal appendix, low formed s tool burden. Assessment And Plan: This is an 88-year-old woman, who comes in with significant anemia, and a possi ble rectal wall mass. 1. IV fluid hydration. 2. Antibiotic coverage. 3. Transfuse as needed for resuscitation. 4. Await Cardiology's recommendations regarding her elevation of troponins. Based on the recommendat ions, we will consider a bowel prep and colonoscopy for diagnostic purposes. This will be a diagnost ic colonoscopy for a rectal mass. I will attempt to perform a complete colonoscopy for evaluation of her entire colon. Biopsies will be performed. I have explained the risks, benefits, and alternativ es of colonoscopy to the patient including, but not limited to bleeding, infection, damage to surroun ding tissues, need further operative procedures, intestinal perforation, heart attacks, blood clots, strokes, other unforeseen complications in the perioperative period. AMEYA/LESLIE Voice ID: [id number] Report ID: [id number]
[2024-10-21] MEDS ORDERED: EPINEPHRINE 1 MG/ML VIAL ONE (14:06)
[2024-10-21] MEDS ORDERED: propofoL 200 MG/20 ML VIAL IV ONE (14:17)
[2024-10-21] MEDS ORDERED: LIDOCAINE 1% MPF 5 ML VIAL ONE (14:17)
--- NOTE | 2024-10-21 17:55 | P.PN ---
Subjective Date of Service: 10/21/24 Chief Complaint: Lower GI bleeding; melanotic stool K low today status post colonoscopy family at bedside denies abdominal pain Review of Systems 10-point ROS is otherwise unremarkable Physical Examination - Vital Signs Temperature: 98.4 F Blood Pressure: 177/84 Pulse: 114 Respirations: 20 Pulse Ox (%): 95 - Physical Exam General: In no apparent distress HEENT: Atraumatic, Normocephalic Respiratory: Normal air movement Cardiovascular: Regular rate/rhythm, Normal S1 S2 Gastrointestinal: Soft and benign, Non-distended Assessment And Plan - Current Problems (Diagnosis) (1) Lower GI bleed Current Visit: Yes Status: Acute - Plan (1) Lower GI bleed severe anemia Current Visit: Yes Status: Acute (3 )severe anemia Current Visit: Yes Status: Acute (4) NSTEMI Current Visit: Yes Status: Acute (5) Reactive thrombocytosis Current Visit: Yes Status: Acute (6) Hypertension Current Visit: Yes Status: Acute (7) Type 2 diabetes mellitus Current Visit: Yes Status: Acute (8) rectal mass Current Visit: Yes Status: Acute Plan: 1. GI bleed; patient states she has had melanotic stools as well as a hemoglobin of 5.5. Patient CT imaging shows a rectal mass. 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 Patient s/p colonoscopy, CEA orderd -ill continue with PPI and antibiotics -possible dc soon 2. Type II myocardial infarction secondary to anemia, cardiology consultation signed off 3. HTN: resume meds 4. Acute blood loss anemia with reactive thrombocytosis; 2 units of packed red blood cells ordered and will monitor hemoglobin closely. Hgb better post transfusion
--- NOTE | 2024-10-21 22:19 | RAD REPORT ---
EXAMINATION: US bilateral LOWER EXTREMITY VENOUS DOPPLER CLINICAL INDICATION: Leg pain TECHNIQUE: Sonographic evaluation of the veins of the lower extremity bilaterally formed.Grayscale, c olor and spectral analysis performed on all vessels COMPARISON: No prior exam. FINDINGS: Echogenic material consistent with thrombus is present within the right common femoral, right superfi cial femoral, right deep femoral, right popliteal and right posterior tibial veins. Veins are partially compressible. No thrombus seen within deep veins left lower extremity. 3.5 cm right Huynh's cyst. IMPRESSION: Acute thrombus right lower extremity deep veins.
[2024-10-22 08:20] LABS: Hematocrit 27.6 % (36.0-45.0); Hemoglobin 8.5 g/dL (12.0-15.0); MCH 20.9 pg (27.0-35.0); MCHC 30.9 g/dL (32.0-36.0); MCV 67.7 fL (80-100); MPV 6.9 fL (7.6-11.3); Platelets 629 thou/uL (152-406); RBC Red Blood Cell Count 4.08 M/uL (3.86-4.86); Red Cell Distribution Width 28.4 % (12.1-15.2)
[2024-10-22 08:40] LABS: Anion Gap 11.6 mEq/L (5.0-15.0); Potassium 3.6 mEq/L (3.5-5.1)
[2024-10-22 09:30] LABS: Anisocytosis 3+; Blood Morphology Comment NOTED (NOT SEEN); Differential Total Cells Count 100; Hypochromasia 1+; Lymphocytes 10 % (15-42); Microcytosis 1+; Monocytes 5 % (0-10); Platelet Estimate INCR; Segmented Neutrophils 84 % (40-80)
--- NOTE | 2024-10-22 11:09 | P.DS ---
Admission Date: 10/18/24 Discharge Date: 10/22/24 Disposition: ROUTINE DISCHARGE Reason for Admission: Lower GI bleeding; melanotic stool - Problems (1) Lower GI bleed Current Visit: Yes Status: Acute Hospital Course: Patient is an 88-year-old female who comes into the hospital with severe anemia. She was told by her PCP her hemoglobin has been running low since August. Her current hemoglobin is 5.5. Patient states she has been having melanotic stools for the last month and a half. She denies any weight loss. In the ER she had imaging studies which revealed her rectal mass as well as lymphadenopathy. Will consult GI for endoscopy for further evaluation and biopsy of the rectal lesion. Patient states she has never had a colonoscopy or an EGD. Patient denies any family history of colorectal cancer. Patient will be admitted for inpatient hospitalization. Patient also has an elevated troponin. She is also followed up with her director health and has had a stress test in the last year which did not reveal any significant abnormality. Patient possibly with a type II myocardial infarction because of the degree of anemia. Will consult cardiology for further e valuation. Patient will be admitted for inpatient hospitalization. Will continue with the PPI and IV antibiotics and will await further recommendations per GI and cardiology seen by surgery blood ordered s/p limited c scope abnormal imaging, plan for outpatient, surgery, colo rectal and oncology followup dc time < 30 minutes, family called and updated Vital Signs/Physical Exam: Temp Pulse Resp BP Pulse Ox 99.0 F 115 H 32 H 165/82 H 97 10/22/24 08:00 10/22/24 08:00 10/22/24 08:00 10/22/24 08:00 10/22/24 08:00 General: Alert, In no apparent distress HEENT: Atraumatic, Normocephalic Neck: Supple Respiratory: Clear to auscultation bilaterally Cardiovascular: Regular rate/rhythm Gastrointestinal: Soft and benign, Non-distended Musculoskeletal: No swelling Laboratory Data at Discharge: WBC 15.20 thou/uL (4.3-10.9) H 10/22/24 08:11 Hgb 8.5 g/dL (12.0-15.0) L 10/22/24 08:11 Hct 27.6 % (36.0-45.0) L 10/22/24 08:11 Plt Count 629 thou/uL (152-406) H 10/22/24 08:11 PT 12.2 SECONDS (10-13.0) 10/20/24 08:13 INR 1.07 10/20/24 08:13 APTT 31.3 SECONDS (27.2-37.4) 10/20/24 08:13 Sodium 142 mEq/L (136-145) 10/22/24 08:11 Potassium 3.6 mEq/L (3.5-5.1) D 10/22/24 08:11 BUN 16 mg/dL (7-18) 10/22/24 08:11 Creatinine 0.69 mg/dL (0.55-1.02) 10/22/24 08:11 Glucose 172 mg/dL (74-106) H 10/22/24 08:11 Magnesium 1.9 mg/dL (1.6-2.4) 10/20/24 08:13 Total Bilirubin 0.6 mg/dL (0.2-1.0) 10/20/24 08:13 AST 15 U/L (15-37) 10/20/24 08:13 ALT < 14 U/L (13-56) 10/20/24 08:13 Alkaline Phosphatase 87 U/L (45-117) 10/20/24 08:13 Triglycerides 61 mg/dL (<150) 10/20/24 08:13 Cholesterol 158 mg/dL (<200) 10/20/24 08:13 HDL Cholesterol 73 mg/dL (40-60) H 10/20/24 08:13 Cholesterol/HDL Ratio 2.16 10/20/24 08:13 Lipase 19 U/L (13-75) 10/18/24 16:20 Home Medications: Amlodipine Besylate [Norvasc] 10 mg PO DAILY 04/18/15 cloNIDine HCL [Catapres*] 0.2 mg PO DAILY 04/18/15 Valsartan/Hydrochlorothiazide [Valsartan-Hctz 320-25 mg Tab] 80 mg PO DAILY 12/26/15 Metformin HCl 850 mg PO DAILY 10/19/24 Metoprolol Succinate 25 mg PO DAILY 10/19/24 Physician Discharge Instructions: - FOLLOW UP WITH COLORECTAL SURGEON AND ONCOLOGIST RADHA - WILL NEED REPEAT COLONSOCOPY WITH 2 DAY PREP Diet: Regular Followup: Tommy Singh MD [Primary Care Provider] - 1-2 Weeks Bryce Morrow MD [ACTIVE - CAN ADMIT] - Taras Asif MD [ACTIVE - CAN ADMIT] -
[2024-10-23] MEDS: METOPROLOL TAR 25 MG TAB PO ONE (10:48)
[2024-10-23] MEDS: PANTOPRAZOLE INJ 80 MG in NA CHLORIDE 0.9% 250 ML IV SCH (13:51)
[2024-10-23] MEDS: METOPROLOL TAR 25 MG TAB PO SCH (16:17)
[2024-10-23] MEDS: metroNIDAZOLE 500 MG TABLET PO SCH (20:54)
[2024-10-23] MEDS: CEFDINIR 300 MG CAP PO SCH (20:55)
[2024-10-23] MEDS: HYDROCORTISONE SUC 100 MG INJ IV SCH (20:55)
[2024-10-24] MEDS: PANTOPRAZOLE 40MG TABLET PO SCH (08:39)
[2024-10-24 08:45] LABS: Hematocrit 28.1 % (36.0-45.0); Hemoglobin 8.5 g/dL (12.0-15.0); MCH 20.9 pg (27.0-35.0); MCHC 30.3 g/dL (32.0-36.0); MCV 69.1 fL (80-100); MPV 7.5 fL (7.6-11.3); Platelets 558 thou/uL (152-406); RBC Red Blood Cell Count 4.06 M/uL (3.86-4.86); Red Cell Distribution Width 29.9 % (12.1-15.2)
[2024-10-24 09:01] LABS: AST/SGOT 16 U/L (15-37); Albumin 2.2 g/dL (3.4-5.0); Albumin/Globulin Ratio 0.5 (1.1-1.8); Alkaline Phosphatase 71 U/L (45-117); Anion Gap 9.2 mEq/L (5.0-15.0); BUN Blood Urea Nitrogen 22 mg/dL (7-18); Bicarbonate 23 mEq/L (21-32); Bilirubin Total 0.3 mg/dL (0.2-1.0); Globulin 4.5 g/dL (2.3-3.5); Glomerular Filtration Rate 80 ml/min (=/>90); Glucose Level 203 mg/dL (74-106); Potassium 4.2 mEq/L (3.5-5.1); Protein, Total 6.7 g/dL (6.4-8.2); Sodium Level 140 mEq/L (136-145)
[2024-10-24 09:03] LABS: ALT/SGPT < 14 U/L (13-56)
[2024-10-24 10:49] LABS: Anisocytosis 3+; Blood Morphology Comment NOTED (NOT SEEN); Differential Total Cells Count 100; Hypochromasia 1+; Lymphocytes 11 % (15-42); Microcytosis 1+; Monocytes 4 % (0-10); Myelocytes 1 % (0-0); Platelet Estimate INCR; Segmented Neutrophils 83 % (40-80)
[2024-10-24 10:51] LABS: Burr Cells FEW
[2024-10-24] MEDS: ENSURE MAX PROTEIN 330 ML LIQUID PO SCH (11:30)
[2024-10-24] MEDS: ALBUMIN HUMAN 25% 100 ML IV ONE (11:44)
[2024-10-24] MEDS: FUROSEMIDE 20 MG/ 2ML VIAL IV ONE (16:54)
--- NOTE | 2024-10-25 07:27 | P.PN ---
Date of Service: 10/23/24 Subjective Chart has been reviewed. Patient is a 88-year-old female who came to the hospital with lower GI bleeding. Patient must of had microscopic bleeding because there was no obvious blood noted per patient or the family. Patient had a large rectal mass that was biopsied by general surgery, Dr. Gar. Pathology is pending. Patient is going to get set up for outpatient oncology follow-up. She needs to get stronger so she will go to snf facility prior to following up. Pathology is pending. Patient will need to get strengthened up prior to chemo or radiation. Patient will be transferred once accepted to snf. Continue with aggressive physical therapy. Patient with si gnificant lower extremity edema and will continue with diuresing. Physical Examination - Vital Signs Reviewed - Physical Exam General: Alert, In no apparent distress, Oriented x3 Respiratory: Clear to auscultation bilaterally, Normal air movement Cardiovascular: Regular rate/rhythm, Normal S1 S2, No murmurs Gastrointestinal: Normal bowel sounds, Soft and benign, Non-distended, No tenderness, No rebound, No guarding Musculoskeletal: No clubbing, No swelling, No tenderness Neurological: Generalized weakness of the lower extremity with lower extremity edema Assessment & Plan - Problems (Diagnosis) (1) Lower GI bleed Current Visit: Yes Status: Acute (2) Hypertension Current Visit: Yes Status: Acute (3) Type 2 diabetes mellitus Current Visit: Yes Status: Acute (4) Reactive thrombocytosis Current Visit: Yes Status: Acute - Plan Continue with plan of care as mentioned below: 1. Patient with GI bleed; patient states she has had melanotic stools as well as a hemoglobin of 5.5. Patient CT imaging shows a rectal mass. 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 Patient has not had a colonoscopy. Will continue with PPI and antibiotics and await for GI consultation. Appreciate their assistance in patient's care. 2. Type II myocardial infarction secondary to anemia; continue monitoring H&H. Hold antiplatelet therapy because of the GI bleed but continue with statin therapy at this time. Will get cardiology consultation as patient states she has had a stress test in the last year which was unremarkable 3. Metabolic syndrome; strict blood pressure and blood sugar control and resume antihypertensives and oral hypoglycemic agents as tolerated 4. Acute blood loss anemia with reactive thrombocytosis; 2 units of packed red blood cells ordered and will monitor hemoglobin closely. Anemia workup with iron studies and B12 level as well as reticulocyte count pending 5. GI DVT prophylaxis Discharge Plan: Home Plan to discharge in: Greater than 2 days - Advance Directives Does patient have a Living Will: No Does patient have a Durable POA for Healthcare: No - Code Status/Comfort Care Code Status Assessed: Yes Code Status: Full Code Critical Care: No Time Spent Managing PTS Care (In Minutes): 30
--- NOTE | 2024-10-25 07:30 | P.PN ---
Date of Service: 10/24/24 Subjective Patient is doing well. Patient's lower extremities are very tight but recent venous Doppler was negative. Continue with diuresing. Patient appears to have third spaced quite a bit of fluid into her lower extremities. 10/23 Chart has been reviewed. Patient is a 88-year-old female who came to the hospital with lower GI bleeding. Patient must of had microscopic bleeding because there was no obvious blood noted per patient or the family. Patient had a large rectal mass that was biopsied by general surgery, Dr. Gar. Pathology is pending. Patient is going to get set up for outpatient oncology follow-up. She needs to get stronger so she will go to intermediate facility prior to following up. Pathology is pending. Patient will need to get strengthened up prior to chemo or radiation. Patient will be transferred once accepted to intermediate. Continue with aggressive physical therapy. Patient with significant lower extremity edema and will continue with diuresing. Physical Examination - Vital Signs Reviewed - Physical Exam General: Alert, In no apparent distress, Oriented x3 Respiratory: Clear to auscultation bilaterally, Normal air movement Cardiovascular: Regular rate/rhythm, Normal S1 S2, No murmurs Gastrointestinal: Normal bowel sounds, Soft and benign, Non-distended, No tenderness, No rebound, No guarding Musculoskeletal: No clubbing, Bilateral lower extremity edema, No tenderness Neurological: Generalized weakness of the lower extremity with lower extremity edema Assessment & Plan - Problems (Diagnosis) (1) Lower GI bleed Current Visit: Yes Status: Acute (2) Hypertension Current Visit: Yes Status: Acute (3) Type 2 diabetes mellitus Current Visit: Yes Status: Acute (4) Reactive thrombocytosis Current Visit: Yes Status: Acute - Plan Continue with plan of care as mentioned below: 1. Patient with GI bleed; patient states she has had melanotic stools as well as a hemoglobin of 5.5. Patient CT imaging shows a rectal mass. 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 Patient status post biopsy and pathology is pending. Appreciate surgery asst in pts care. Appreciate their assistance in patient's care. 2. Type II myocardial infarction secondary to anemia; continue monitoring H&H. Holding antiplatelet therapy because of the GI bleed but continue with statin therapy at this time. Appreciate cardiology consultation as patient states she has had a stress test in the last year which was unremarkable 3. Metabolic syndrome; strict blood pressure and blood sugar control and resume antihypertensives and oral hypoglycemic agents as tolerated 4. Acute blood loss anemia with reactive thrombocytosis; 2 units of packed red blood cells ordered and will monitor hemoglobin closely. Anemia workup with iron studies and B12 level as well as reticulocyte count reviewed 5. GI DVT prophylaxis Discharge Plan: Home Plan to discharge in: Greater than 2 days - Advance Directives Does patient have a Living Will: No Does patient have a Durable POA for Healthcare: No - Code Status/Comfort Care Code Status Assessed: Yes Code Status: Full Code Critical Care: No Time Spent Managing PTS Care (In Minutes): 30
[2024-10-25] MEDS: POTASSIUM CL SA 10 MEQ TAB PO SCH (08:57)
[2024-10-25] MEDS: ALBUMIN HUMAN 25% 100 ML IV ONE (08:57)
[2024-10-25] MEDS: SPIRONOLACTONE 25 MG TABLET PO SCH (08:58)
[2024-10-25] MEDS: FUROSEMIDE 20 MG/ 2ML VIAL IV ONE (08:58)
[2024-10-25 11:11] LABS: Hematocrit 26.8 % (36.0-45.0); Hemoglobin 8.3 g/dL (12.0-15.0); MCH 21.4 pg (27.0-35.0); MCV 68.9 fL (80-100); MPV 7.1 fL (7.6-11.3); Platelets 512 thou/uL (152-406); RBC Red Blood Cell Count 3.89 M/uL (3.86-4.86); Red Cell Distribution Width 29.5 % (12.1-15.2)
[2024-10-25 12:01] LABS: Anisocytosis 3+; Blood Morphology Comment NOTED (NOT SEEN); Differential Total Cells Count 100; Hypochromasia 1+; Lymphocytes 9 % (15-42); Microcytosis 1+; Monocytes 3 % (0-10); Platelet Estimate INCR; Poikilocytosis 1+; Segmented Neutrophils 88 % (40-80)
[2024-10-25 12:02] LABS: Spherocyte 1+
[2024-10-25 12:51] LABS: Anion Gap 11.1 mEq/L (5.0-15.0); Magnesium 1.8 mg/dL (1.6-2.4); Potassium 4.1 mEq/L (3.5-5.1)
--- NOTE | 2024-10-25 14:01 | P.PN ---
Date of Service: 10/25/24 Subjective Assuming care today. Resting in bed. No acute complaint. Complaints of pain in the right leg Review of system 10 point review of systems otherwise negative Physical Examination - Vital Signs Reviewed - Physical Exam General: Alert, In no apparent distress, Oriented x3 Respiratory: Clear to auscultation bilaterally, Normal air movement Cardiovascular: Regular rate/rhythm, Normal S1 S2, No murmurs Gastrointestinal: Normal bowel sounds, Soft and benign, Non-distended, No tenderness, No rebound, No guarding Musculoskeletal: No clubbing, Bilateral lower extremity edema, No tenderness Neurological: Generalized weakness of the lower extremity with lower extremity edema Assessment & Plan - Problems (Diagnosis) (1) Lower GI bleed Current Visit: Yes Status: Acute (2) Hypertension Current Visit: Yes Status: Acute (3) Type 2 diabetes mellitus Current Visit: Yes Status: Acute (4) Reactive thrombocytosis Current Visit: Yes Status: Acute - Plan Continue with plan of care as mentioned below: 1. Patient with GI bleed; patient states she has had melanotic stools as well as a hemoglobin of 5.5. Patient CT imaging shows a rectal mass. 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 Patient status post biopsy and pathology is pending. Appreciate surgery asst in pts care. Appreciate their assistance in patient's care. 2. Type II myocardial infarction secondary to anemia; continue monitoring H&H. Holding antiplatelet therapy because of the GI bleed but continue with statin therapy at this time. Appreciate cardiology consultation as patient states she has had a stress test in the last year which was unremarkable 3. Metabolic syndrome; strict blood pressure and blood sugar control and resume antihypertensives and oral hypoglycemic agents as tolerated 4. Acute blood loss anemia with reactive thrombocytosis; 2 units of packed red blood cells ordered and will monitor hemoglobin closely. Anemia workup with iron studies and B12 level as well as reticulocyte count reviewed 5. GI DVT prophylaxis 6. Hypokalemia: Replace potassium 7. Right leg DVT: Consult cardiology for IVC filter placement. Discharge Plan: Home Plan to discharge in: 1 day - Advance Directives Does patient have a Living Will: No Does patient have a Durable POA for Healthcare: No - Code Status/Comfort Care Code Status Assessed: Yes Code Status: Full Code
--- NOTE | 2024-10-25 19:42 | RAD REPORT ---
EXAMINATION: US RIGHT LOWER EXTREMITY VENOUS DOPPLER CLINICAL INDICATION: [facility] MA[facility] Right lower leg Right lower extremity swelling Y TECHNIQUE: Complete bilateral duplex sonography of the RIGHT lower extremity veins was performed. The examination included compression for vein patency, color Doppler imaging and flow augmentation in response to distal compression of the distal external iliac, common femoral, femoral, popliteal, tibi al, and great and small saphenous veins. COMPARISON: 10/21/2024. FINDINGS: Duplex sonography testing of the veins of the RIGHT lower extremity was performed. Color flow imaging shows partially compressible, femoral vein and saphenofemoral junction with hypoechoic thrombus. Questionable partial compressibility one of the paired posterior tibial veins as well. Pulsatile and phasic flow is present within the remainder of the right lower extremity deep and superficial veins examined. Edema along the lower leg. IMPRESSION: Partial improvement of thrombus burden with residual subocclusive thrombus along the comm on femoral vein and saphenofemoral junction, possibly one of the paired posterior tibial veins as well.
[2024-10-25] MEDS: ENSURE MAX PROTEIN 330 ML LIQUID PO SCH (20:55)
[2024-10-25 23:54] VITALS: O2SAT 93
--- NOTE | 2024-10-26 12:42 | P.PN ---
Subjective Date of Service: 10/26/24 Chief Complaint: Lower GI bleeding; melanotic stool Subjective: No new changes, No C/O voiced, Tolerating diet, Ambulating, Improving Review of Systems 10-point ROS is otherwise unremarkable Physical Examination - Vital Signs Temperature: 98.4 F Blood Pressure: 151/79 Pulse: 108 Respirations: 16 Pulse Ox (%): 97 - Physical Exam General: Alert, In no apparent distress HEENT: Atraumatic, PERRLA, EOMI Neck: Supple, JVD not distended Respiratory: Clear to auscultation bilaterally, Normal air movement Cardiovascular: Regular rate/rhythm, Normal S1 S2 Gastrointestinal: Normal bowel sounds, No tenderness Musculoskeletal: No tenderness Integumentary: No rashes Neurological: Normal speech, Normal tone, Normal affect Lymphatics: No axilla or inguinal lymphadenopathy - Studies Medications List Reviewed: Yes Assessment And Plan - Current Problems (Diagnosis) (1) Type 2 HI (myocardial infarction) Current Visit: Yes Status: Acute Plan: Patient had mild troponin leak, no significant EKG changes, no chest pain, patient had a stress test done with cardiology last year that was negative. it is type 2 HI from severe anemia Echo shows normal EF No further cardiac work up needed. (2) Preoperative clearance Current Visit: Yes Status: Acute Plan: Patient is cleared as low cardiac risk for procedure. (3) Hypertension Current Visit: Yes Status: Acute Plan: lopressor 25 mg po BID Valsartan 80 mg michelle Aldactone 25 mg daily continue Clonidine 0.1 mg po BID (4) DVT (deep venous thrombosis) Current Visit: Yes Status: Acute Plan: DVT of right CFV and saphenous vein, patient can not take antocoagulation due to rectal mass, possible cancer and rectal bleeding, patient will benefit from temporary IVC filter placement to prevent PE, until cancer is taken care of, explained procedure in details to patient and agrees to proceed. Keep NPO after midnight.
--- NOTE | 2024-10-26 13:04 | P.PN ---
Date of Service: 10/26/24 Subjective No complaints. Going for IVC filter placement. Denies fevers, chills, chest pain Review of system 10 point review of systems otherwise negative Physical Examination - Vital Signs Reviewed - Physical Exam General: Alert, In no apparent distress, Oriented x3 Respiratory: Clear to auscultation bilaterally, Normal air movement Cardiovascular: Regular rate/rhythm, Normal S1 S2, No murmurs Gastrointestinal: Normal bowel sounds, Soft and benign, Non-distended, No tenderness, No rebound, No guarding Musculoskeletal: No clubbing, Bilateral lower extremity edema, No tenderness Neurological: Generalized weakness of the lower extremity with lower extremity edema Assessment & Plan - Problems (Diagnosis) Lower GI bleed / Rectal Mass Current Visit: Yes Status: Acute DVT Hypertension Current Visit: Yes Status: Acute Type 2 diabetes mellitus Current Visit: Yes Status: Acute Reactive thrombocytosis Current Visit: Yes Status: Acute - Plan Continue with plan of care as mentioned below: 1. Patient with GI bleed; patient states she has had melanotic stools as well as a hemoglobin of 5.5. Patient CT imaging shows a rectal mass. 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 Patient status post biopsy and pathology is pending. Appreciate surgery asst in pts care. Appreciate their assistance in patient's care. 2. Type II myocardial infarction secondary to anemia; continue monitoring H&H. Holding antiplatelet therapy because of the GI bleed but continue with statin therapy at this time. Appreciate cardiology consultation as patient states she has had a stress test in the last year which was unremarkable 3. Metabolic syndrome; strict blood pressure and blood sugar control and resume antihypertensives and oral hypoglycemic agents as tolerated 4. Acute blood loss anemia with reactive thrombocytosis; 2 units of packed red blood cells ordered and will monitor hemoglobin closely. Anemia workup with iron studies and B12 level as well as reticulocyte count reviewed 5. GI DVT prophylaxis 6. Hypokalemia: Replace potassium 7. Right leg DVT: Consult cardiology for IVC filter placement. Discharge Plan: Home Plan to discharge in: 1 day - Advance Directives Does patient have a Living Will: No Does patient have a Durable POA for Healthcare: No - Code Status/Comfort Care Code Status Assessed: Yes Code Status: Full Code
--- NOTE | 2024-10-27 10:20 | P.PN ---
Subjective Date of Service: 10/27/24 Chief Complaint: Lower GI bleeding; melanotic stool Subjective: No new changes, No C/O voiced, Tolerating diet, Ambulating, Improving Review of Systems 10-point ROS is otherwise unremarkable Physical Examination - Vital Signs Temperature: 98.0 F Blood Pressure: 165/85 Pulse: 102 Respirations: 18 Pulse Ox (%): 96 - Physical Exam General: Alert, In no apparent distress HEENT: Atraumatic, PERRLA, EOMI Neck: Supple, JVD not distended Respiratory: Clear to auscultation bilaterally, Normal air movement Cardiovascular: Regular rate/rhythm, Normal S1 S2 Gastrointestinal: Normal bowel sounds, No tenderness Musculoskeletal: No tenderness Integumentary: No rashes Neurological: Normal speech, Normal tone, Normal affect Lymphatics: No axilla or inguinal lymphadenopathy - Studies Medications List Reviewed: Yes Assessment And Plan - Current Problems (Diagnosis) (1) Type 2 MT (myocardial infarction) Current Visit: Yes Status: Acute Plan: Patient had mild troponin leak, no significant EKG changes, no chest pain, patient had a stress test done with cardiology last year that was negative. it is type 2 MT from severe anemia Echo shows normal EF No further cardiac work up needed. (2) Preoperative clearance Current Visit: Yes Status: Acute Plan: Patient is cleared as low cardiac risk for procedure. (3) Hypertension Current Visit: Yes Status: Acute Plan: lopressor 25 mg po BID Valsartan 80 mg michelle Aldactone 25 mg daily continue Clonidine 0.1 mg po BID (4) DVT (deep venous thrombosis) Current Visit: Yes Status: Acute Plan: DVT of right CFV and saphenous vein, patient can not take antocoagulation due to rectal mass, possible cancer and rectal bleeding, patient will benefit from temporary IVC filter placement to prevent PE, until cancer is taken care of, explained procedure in details to patient and agrees to proceed. discussed again with patient and called and talked to her Son over the phone and they agree to proceed with procedure. need to follow up with us after filter placement.
[2024-10-27] MEDS: NA CHLORIDE 0.9% 500 ML ONE (13:12)
[2024-10-27] MEDS ORDERED: LIDOCAINE 1% 20 ML MDV ONE (13:21)
[2024-10-27] MEDS ORDERED: FENTANYL CITR 100 MCG/2 ML ONE (13:38)
[2024-10-27] MEDS ORDERED: MIDAZOLAM HCL 2 MG/2 ML INJ ONE (13:38)
--- NOTE | 2024-10-27 14:18 | P.PN ---
Date of Service: 10/27/24 Subjective No complaints. Doing well. Going for IVC filter placement today Review of system 10 point review of systems otherwise negative Physical Examination - Vital Signs Reviewed - Physical Exam General: Alert, In no apparent distress, Oriented x3 Respiratory: Clear to auscultation bilaterally, Normal air movement Cardiovascular: Regular rate/rhythm, Normal S1 S2, No murmurs Gastrointestinal: Normal bowel sounds, Soft and benign, Non-distended, No tenderness, No rebound, No guarding Musculoskeletal: No clubbing, Bilateral lower extremity edema, No tenderness Neurological: Generalized weakness of the lower extremity with lower extremity edema Assessment & Plan - Problems (Diagnosis) Lower GI bleed / Rectal Mass Current Visit: Yes Status: Acute DVT Hypertension Current Visit: Yes Status: Acute Type 2 diabetes mellitus Current Visit: Yes Status: Acute Reactive thrombocytosis Current Visit: Yes Status: Acute - Plan Continue with plan of care as mentioned below: --Patient with GI bleed; patient states she has had melanotic stools as well as a hemoglobin of 5.5. Patient CT imaging shows a rectal mass. 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 Patient status post biopsy and pathology is pending. Appreciate surgery asst in pts care. Outpatient follow-up with oncology --Right leg DVT: Consult cardiology for IVC filter placement today --Type II myocardial infarction secondary to anemia; continue monitoring H&H. Holding antiplatelet therapy because of the GI bleed but continue with statin therapy at this time. Appreciate cardiology consultation as patient states she has had a stress test in the last year which was unremarkable --Metabolic syndrome; strict blood pressure and blood sugar control and resume antihypertensives and oral hypoglycemic agents as tolerated --Acute blood loss anemia with reactive thrombocytosis; 2 units of packed red blood cells ordered and will monitor hemoglobin closely. Anemia workup with iron studies and B12 level as well as reticulocyte count reviewed --Hypokalemia: Replace potassium --GI DVT prophylaxis Discharge Plan: Home Plan to discharge in: 1 day - Advance Directives Does patient have a Living Will: No Does patient have a Durable POA for Healthcare: No - Code Status/Comfort Care Code Status Assessed: Yes Code Status: Full Code
[2024-10-27] MEDS: metroNIDAZOLE 500 MG TABLET PO SCH (17:38)
--- NOTE | 2024-10-27 22:58 | OP ---
Date of Procedure: 10/27/2024 Surgeon: Kp Montemayor Procedure Performed: IVC filter placement. Indication For Procedure: The patient has right common femoral vein DVT with rectal cancers and acti ve rectal bleeding and she is not a candidate for anticoagulation. Complications: None. Estimated Blood Loss: Less than 50 cc. Access: Right common femoral vein, closed by manual compression. Sedation Time: 20 minutes with 1 of Versed and 25 of fentanyl. Description Of Procedure: After risks, benefits, and alternatives were explained to the patient, the patient agreed to proceed with procedure and signed informed consent. The patient was brought back to the tender labor, prepped and draped in sterile fashion. Time-out was performed. Sedation was admini stered. Next, right common femoral venous access was obtained using ultrasound-guided micropuncture technique. A 7-[place] sheath was inserted that was later exchanged over a J-wire with a system [employer] renard sheath and after having manual injections, we were able to identify the IVC and the renal vein, s o next we delivered the IVC filter. It was placed below the renal veins and repeated injection shows that IVC filter was placed opposing to the superior vena cava with not optimizing flow to the renal veins. At the end of procedure, sheath was removed. Manual compression was applied. Assessment: Significant right common femoral vein DVT. The patient is not candidate for anticoagula tion due to active rectal cancer. Plan: IVC filter placed, advised the patient and family that she needs to follow up in clinic in 3 t o 6 months to be evaluated for IVC filter removal. BERNIE/LESLIE Voice ID: [id number] Report ID: [id number]
[2024-10-28 05:29] LABS: Hematocrit 24.9 % (36.0-45.0); MCH 21.9 pg (27.0-35.0); MCHC 32.3 g/dL (32.0-36.0); MPV 7.3 fL (7.6-11.3); Platelets 464 thou/uL (152-406); RBC Red Blood Cell Count 3.66 M/uL (3.86-4.86); Red Cell Distribution Width 30.5 % (12.1-15.2)
[2024-10-28 05:35] LABS: Albumin 2.3 g/dL (3.4-5.0); Albumin/Globulin Ratio 0.6 (1.1-1.8); Alkaline Phosphatase 61 U/L (45-117); Anion Gap 9.2 mEq/L (5.0-15.0); BUN Blood Urea Nitrogen 23 mg/dL (7-18); Bicarbonate 24 mEq/L (21-32); Bilirubin Total 0.4 mg/dL (0.2-1.0); Globulin 3.8 g/dL (2.3-3.5); Glomerular Filtration Rate 85 ml/min (=/>90); Glucose Level 180 mg/dL (74-106); Potassium 4.2 mEq/L (3.5-5.1); Protein, Total 6.1 g/dL (6.4-8.2); Sodium Level 141 mEq/L (136-145)
[2024-10-28 05:39] LABS: ALT/SGPT < 14 U/L (13-56); AST/SGOT < 10 U/L (15-37)
[2024-10-28 05:49] LABS: Band Neutrophils 2 % (0-1); Differential Total Cells Count 100; Lymphocytes 16 % (15-42); Monocytes 11 % (0-10); Reactive Lymphocytes 4 %; Segmented Neutrophils 66 % (40-80)
[2024-10-28 05:50] LABS: Anisocytosis 2+; Blood Morphology Comment NOTED (NOT SEEN); Hypochromasia 1+; Microcytosis 2+; Platelet Estimate ADEQ
--- NOTE | 2024-10-28 16:34 | P.PN ---
Date of Service: 10/28/24 Subjective No complaints. Doing well. Going for IVC filter placement today Review of system 10 point review of systems otherwise negative Physical Examination - Vital Signs Reviewed - Physical Exam General: Alert, In no apparent distress, Oriented x3 Respiratory: Clear to auscultation bilaterally, Normal air movement Cardiovascular: Regular rate/rhythm, Normal S1 S2, No murmurs Gastrointestinal: Normal bowel sounds, Soft and benign, Non-distended, No tenderness, No rebound, No guarding Musculoskeletal: No clubbing, Bilateral lower extremity edema, No tenderness Neurological: Generalized weakness of the lower extremity with lower extremity edema Assessment & Plan - Problems (Diagnosis) Lower GI bleed / Rectal Mass Current Visit: Yes Status: Acute DVT Hypertension Current Visit: Yes Status: Acute Type 2 diabetes mellitus Current Visit: Yes Status: Acute Reactive thrombocytosis Current Visit: Yes Status: Acute - Plan Continue with plan of care as mentioned below: --Patient with GI bleed; patient states she has had melanotic stools as well as a hemoglobin of 5.5. Patient CT imaging shows a rectal mass. 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 Patient status post biopsy and pathology is pending. Appreciate surgery asst in pts care. Outpatient follow-up with oncology --Right leg DVT: IVC filter placed. --Type II myocardial infarction secondary to anemia; continue monitoring H&H. Holding antiplatelet therapy because of the GI bleed but continue with statin therapy at this time. Appreciate cardiology consultation as patient states she has had a stress test in the last year which was unremarkable --Metabolic syndrome; strict blood pressure and blood sugar control and resume antihypertensives and oral hypoglycemic agents as tolerated --Acute blood loss anemia with reactive thrombocytosis; 2 units of packed red blood cells ordered and will monitor hemoglobin closely. Anemia workup with iron studies and B12 level as well as reticulocyte count reviewed --Hypokalemia: Replace potassium --GI DVT prophylaxis Discharge Plan: Home Plan to discharge in: 1 day - Advance Directives Does patient have a Living Will: No Does patient have a Durable POA for Healthcare: No - Code Status/Comfort Care Code Status Assessed: Yes Code Status: Full Code
[2024-10-28 17:23] VITALS: BP 139/64
[2024-10-28 17:34] VITALS: TEMP 97.4
--- NOTE | 2024-10-30 10:40 | P.DS ---
Admission Date: 10/18/24 Discharge Date: 10/28/24 Disposition: TRANSFER TO SNF - REHAB Discharge Condition: FAIR Reason for Admission: Lower GI bleeding; melanotic stool Hospital Course: 88-year-old female with a past medical history of hypertension presenting with anemia secondary to GI bleed. Upon admission CT of the abdomen reviewed possible rectal cancer with lymphadenopathy. Labs revealed a hemoglobin of 5.5 for which she was transfused with 2 units of PRBC. Additionally she had a mild troponin leak with no significant EKG change. General surgery was consulted and she was taken for colonoscopy. Biopsy was sent to pathology. During the course of her stay she endorsed right leg pain. Right leg ultrasound revealed DVT. Cardiology was consulted and IVC filter was placed prior to discharge. Echo revealed normal ejection fraction. The remainder of her hospital course has been uncomplicated. She will follow-up with oncology upon discharge. She is stable for transfer back to halfway. She is medically optimized for discharge Vital Signs/Physical Exam: Temp Pulse Resp BP Pulse Ox 97.4 F 102 H 16 139/64 95 10/28/24 16:00 10/28/24 17:09 10/28/24 16:00 10/28/24 17:09 10/28/24 16:00 General: In no apparent distress HEENT: Normocephalic Neck: Supple Respiratory: Normal air movement Cardiovascular: Normal pulses Gastrointestinal: Normal bowel sounds Musculoskeletal: No clubbing, No swelling Integumentary: No rashes Neurological: Normal speech, Normal strength at 5/5 x4 extr Lymphatics: No axilla or inguinal lymphadenopathy Laboratory Data at Discharge: WBC 10.80 thou/uL (4.3-10.9) 10/28/24 04:49 Hgb 8.0 g/dL (12.0-15.0) L 10/28/24 04:49 Hct 24.9 % (36.0-45.0) L 10/28/24 04:49 Plt Count 464 thou/uL (152-406) H 10/28/24 04:49 PT 12.2 SECONDS (10-13.0) 10/20/24 08:13 INR 1.07 10/20/24 08:13 APTT 31.3 SECONDS (27.2-37.4) 10/20/24 08:13 Sodium 141 mEq/L (136-145) 10/28/24 04:49 Potassium 4.2 mEq/L (3.5-5.1) 10/28/24 04:49 BUN 23 mg/dL (7-18) H 10/28/24 04:49 Creatinine 0.67 mg/dL (0.55-1.02) 10/28/24 04:49 Glucose 180 mg/dL (74-106) H 10/28/24 04:49 Magnesium 1.8 mg/dL (1.6-2.4) 10/25/24 10:41 Total Bilirubin 0.4 mg/dL (0.2-1.0) 10/28/24 04:49 AST < 10 U/L (15-37) L 10/28/24 04:49 ALT < 14 U/L (13-56) 10/28/24 04:49 Alkaline Phosphatase 61 U/L (45-117) 10/28/24 04:49 Triglycerides 61 mg/dL (<150) 10/20/24 08:13 Cholesterol 158 mg/dL (<200) 10/20/24 08:13 HDL Cholesterol 73 mg/dL (40-60) H 10/20/24 08:13 Cholesterol/HDL Ratio 2.16 10/20/24 08:13 Lipase 19 U/L (13-75) 10/18/24 16:20 Home Medications: Amlodipine Besylate [Norvasc] 10 mg PO DAILY 04/18/15 cloNIDine HCL [Catapres*] 0.2 mg PO DAILY 04/18/15 Valsartan/Hydrochlorothiazide [Valsartan-Hctz 320-25 mg Tab] 80 mg PO DAILY 12/26/15 Metformin HCl 850 mg PO DAILY 10/19/24 Metoprolol Succinate 25 mg PO DAILY 10/19/24 Physician Discharge Instructions: - FOLLOW UP WITH COLORECTAL SURGEON AND ONCOLOGIST RADHA - WILL NEED REPEAT COLONSOCOPY WITH 2 DAY PREP Diet: Regular Followup: Tommy Singh MD [Primary Care Provider] - 1-2 Weeks Bryce Morrow MD [ACTIVE - CAN ADMIT] - Taras Asif MD [ACTIVE - CAN ADMIT] -
== END 2024-10-28 18:24 | DRG 374 ==
LOC: ER 15:21 → ERHOLD 20:20 → 2ND 10-19 14:45
PROVIDERS: ADMIT Hospitalist; ATTEND Family Medicine
PROC: 30233N1 Transfusion of Nonautologous Red Blood Cells into Peripheral Vein, Percutaneous Approach (ICD-10-PCS; 2024-10-21)
PROC: 06H03DZ Insertion of Intraluminal Device into Inferior Vena Cava, Percutaneous Approach (ICD-10-PCS; 2024-10-21)
PROC: 0DBP8ZX Excision of Rectum, Via Natural or Artificial Opening Endoscopic, Diagnostic (ICD-10-PCS; principal; 2024-10-21 14:30)
DX: C20 Malignant neoplasm of rectum (principal); I21.A1 Myocardial infarction type 2; D62 Acute posthemorrhagic anemia; I82.411 Acute embolism and thrombosis of right femoral vein; E87.6 Hypokalemia; E78.00 Pure hypercholesterolemia, unspecified; I10 Essential (primary) hypertension; E11.9 Type 2 diabetes mellitus without complications; K64.8 Other hemorrhoids; E88.810 Metabolic syndrome; I27.20 Pulmonary hypertension, unspecified; I07.1 Rheumatic tricuspid insufficiency; R59.1 Generalized enlarged lymph nodes; Z79.82 Long term (current) use of aspirin; Z79.899 Other long term (current) drug therapy; Z90.710 Acquired absence of both cervix and uterus
CPT/HCPCS: 36415; 37191; 74177; 76937; 80048; 80053; 80061; 82378; 82607; 82947; 83540; 83690; 83735; 84132; 84484; 85025; 85044; 85610; 85730; 86140; 86850; 86900; 86901; 86920; 88305; 93306; 93970; 93971; 96365; 96366; 97110; 97116; 97161; 97530; 99152; 99153; 99285; C1893; J0171; J0360; J0696; J1720; J1815; J1938; J2003; J2250; J2405; J2470; J2704; J2765; J3010; J3480; J7030; J7040; J7050; P9016; P9047; Q9966; Q9967